=== PATIENT | female | born 1960 | race Caucasian/White ===

== ENCOUNTER 2019-08-14 18:04 | Emergency (ER) | payer MEDICARE, OTHER ==
--- NOTE | 2019-08-14 18:25 | EDM.PDOC ---
ED HPI GENERAL MEDICAL PROBLEM - General Stated Complaint: ABCCESSED TOOTH Time Seen by Provider: 08/14/19 18:04 Source of Information: Reports: Patient History Limitations: Reports: No Limitations - History of Present Illness INITIAL COMMENTS - FREE TEXT/NARRATIVE: 59 y.o.w.f came to the ed due to swelling and pain of her right lower gum. Pt attempted to see her dentist who refused to see her till next Friday. 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 No N/V/D no C/P No other acute med issues. BP 134/78 Pulse 105 RR 18 Pulse ox 98% on RA Temp 36.8 Onset Date: 08/12/19 Onset Time: 09:00 Duration: Day(s):, Getting Worse, Intermittent Location: Reports: Face Quality: Reports: Dull, Stabbing, Throbbing Severity: Moderate Improves with: Reports: Medication, Rest Worsens with: Reports: Movement Context: Reports: Other (tooth abscess) Left Lower Oral/Mouth Pain Score (Numeric/FACES): 8 - Related Data Allergies Allergy/AdvReac Type Severity Reaction Status Date / Time duloxetine [From Cymbalta] Allergy Muscle Verified 08/14/19 18:26 Aches Home Meds: Home Meds Acetaminophen/HYDROcodone [[place] 325-5 MG] 1 tab PO Q6H PRN #4 tablet 08/14/19 [ Rx] Amoxicillin/Potassium Clav [Augmentin 875-125 Tablet] 1 each PO BID #20 tablet 08/14/19 [Rx] ED ROS ENT - Review of Systems Review Of Systems: See Below Constitutional: Reports: No Symptoms HEENT: Reports: Dental Pain Respiratory: Reports: No Symptoms Cardiovascular: Reports: No Symptoms Endocrine: Reports: No Symptoms GI/Abdominal: Reports: No Symptoms : Reports: No Symptoms Musculoskeletal: Reports: No Symptoms Skin: Reports: No Symptoms Neurological: Reports: No Symptoms Psychiatric: Reports: No Symptoms Hematologic/Lymphatic: Reports: No Symptoms Immunologic: Reports: No Symptoms ED EXAM, ENT - Physical Exam Exam: See Below Exam Limited By: No Limitations General Appearance: Alert, WD/WN Eye Exam: Bilateral Eye: Normal Inspection Ears: Normal External Exam Nose: Normal Inspection Mouth/Throat: Dental Abcess (#26), Dental Pain Head: Atraumatic, Facial Swelling Neck: Normal Inspection, Supple, Non-Tender Respiratory/Chest: No Respiratory Distress, Lungs Clear, Normal Breath Sounds, No Accessory Muscle Use, Chest Non-Tender Cardiovascular: Normal Peripheral Pulses, Regular Rate, Rhythm, No Edema, No Gallop, No JVD, No Murmur, No Rub GI/Abdominal: Normal Bowel Sounds, Soft, Non-Tender, No Organomegaly, No Abnormal Bruit, No Mass, Pelvis Stable (Female) Exam: Deferred Rectal (Female) Exam: Deferred Back: Normal Inspection, Full Range of Motion Extremities: Normal Inspection, Normal Range of Motion, Non-Tender Neurological: Alert, Oriented, CN II-XII Intact, Normal Cognition, Normal Gait Psychiatric: Normal Affect, Normal Mood Skin: Warm, Dry, Intact, Normal Color, No Rash Lymphatic: No Adenopathy Course - Vital Signs Text/Narrative:: 59 y.o.w.f came to the ed due to swelling and pain of her right lower gum. Pt attempted to see her dentist who refused to see her till next Friday. 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 No N/V/D no C/P No other acute med issues. BP 134/78 Pulse 105 RR 18 Pulse ox 98% on RA Temp 36.8 PE: WNWD W F with right jaw swelling possible Tooth abscess #26 Imaging/Labs: not indicated Impression: Possible tooths abscess Tx: Abx and [place] Reexam: Improved Plan: D/CX with instructions Last Recorded V/S: Last Vital Signs Temp 36.6 C 08/14/19 18:20 Pulse 105 H 08/14/19 18:20 Resp 18 08/14/19 18:20 BP 132/85 08/14/19 18:20 Pulse Ox 98 08/14/19 18:20 - Orders/Labs/Meds Meds: Medications Discontinued Medications Generic Name Dose Route Start Last Admin Trade Name Freq PRN Reason Stop Dose Admin Hydrocodone Bitart/Acetaminophen 1 tab 08/14/19 18:29 08/14/19 18:48 [place] 325-5 Mg PO 08/14/19 18:30 1 tab ONETIME ONE Administration Amoxicillin/Clavulanate Potassium 1 tab 08/14/19 18:29 08/14/19 18:49 Augmentin 875 Mg/125 Mg PO 08/14/19 18:30 1 tab ONETIME ONE Administration Departure - Departure Time of Disposition: 18:25 Disposition: Home, Self-Care 01 Condition: Good Clinical Impression: Tooth abscess - Discharge Information Prescriptions: Acetaminophen/HYDROcodone [[place] 325-5 MG] 1 tab PO Q6H PRN #4 tablet PRN Reason: tooth pain Amoxicillin/Potassium Clav [Augmentin 875-125 Tablet] 1 each PO BID #20 tablet Referrals: Yun Pope [employer]ORAT[employer] TECHNICIAN [Primary Care Provider] - Forms: ED Department Discharge Additional Instructions: Please take the meds as recommended, please f/u witha dentist a.s.a.p please come back if your symptoms get worse acutely.
[2019-08-14] MEDS ORDERED: Acetaminophen/HYDROcodone 325-5 MG Tab PO ONE (18:29)
[2019-08-14] MEDS ORDERED: Amoxicillin/Clavulanate K 875-125 MG Tab PO ONE (18:29)
== END 2019-08-14 19:00 | disposition home or self-care (01) ==
LOC: FB.ED 18:04
DX: K04.7 Periapical abscess without sinus (principal); Z88.8 Allergy status to other drugs, medicaments and biological substances
CPT/HCPCS: 99282; A9270